=== PATIENT | female | born 1975 | race Caucasian/White ===

== ENCOUNTER 2017-09-13 18:52 | Inpatient (IN) | payer OTHER ==
[~2017-09-13] VITALS: Ht 162.6 cm; Wt 83.3 kg
[2017-09-13 19:09] LABS: EOSINOPHIL (%) 0.1 % (0-5); HEMATOCRIT 42.7 % (36.0-46.0); IMMATURE GRANULOCYTE COUNT 0.2 K/uL; LYMPHOCYTE COUNT 1.9 K/uL (1.0-2.8); MCH 29.4 PG (29.0-34.0); MCV 86.6 FL (83-99); MEAN PLAT.VOLUME 9.3 uM^3 (9.5-12.4); MONOCYTE (%) 4.3 % (3-12); MONOCYTE COUNT 0.6 K/uL (0-0.8); NEUTROPHIL (%) 81.2 % (45-76); PLATELET COUNT 332 K/uL (156-360); RBC DIS.WIDTH-CV 11.9 % (11.8-14.6); RBC DIS.WIDTH-SD 37.8 % (39-53); RED BLOOD COUNT 4.93 M/uL (3.80-5.20); WHITE BLOOD COUNT 14.7 K/uL (4.1-10.2)
[2017-09-13 19:19] LABS: AMYLASE 58 IU/L (1-118); CHLORIDE 110 mEq/L (99-109); POTASSIUM 4.2 mEq/L (3.7-5.4); SODIUM 144 mEq/L (136-147)
[2017-09-13 19:21] LABS: GLUCOSE 105 mg/dL (70-99)
[2017-09-13 19:22] LABS: ANION GAP 13 MEQ/L (2-14)
[2017-09-13 19:24] LABS: SERUM ETHYL ALCOHOL < 10 mg/dL
[2017-09-13 19:26] LABS: UREA NITROGEN (BUN) 12 mg/dL (9-23)
[2017-09-13 19:28] LABS: GFR ESTIMATE (CALCULATED) > 59 mL/min/; LIPASE 12 U/L (1.0-51.0)
[2017-09-13 19:34] LABS: QUANTITATIVE HCG < 4.0 MIU/ML
[2017-09-13 22:09] VITALS: BP 125/78
[2017-09-14 04:13] VITALS: BP 121/72
[2017-09-14 06:43] LABS: HEMATOCRIT 36.9 % (36.0-46.0); MCH 30.5 PG (29.0-34.0); MCHC 34.4 G/DL (30.0-36.0); MCV 88.5 FL (83-99); MEAN PLAT.VOLUME 9.3 uM^3 (9.5-12.4); PLATELET COUNT 296 K/uL (156-360); RBC DIS.WIDTH-CV 12.3 % (11.8-14.6); RBC DIS.WIDTH-SD 40.2 % (39-53); RED BLOOD COUNT 4.17 M/uL (3.80-5.20); WHITE BLOOD COUNT 18.4 K/uL (4.1-10.2)
[2017-09-14 07:09] LABS: ANION GAP 11 MEQ/L (2-14); CHLORIDE 107 MEQ/L (99-109); GFR ESTIMATE (CALCULATED) > 59 mL/min/; GLUCOSE 105 mg/dL (70-99); POTASSIUM 4.2 MEQ/L (3.7-5.4); SAMPLE HEMOLYSIS CHECK 0; SAMPLE ICTERIC CHECK 0; SAMPLE LIPEMIA CHECK 0; SODIUM 141 MEQ/L (136-147); UREA NITROGEN (BUN) 10 mg/dL (9-23)
[2017-09-14 07:33] VITALS: BP 132/78
[2017-09-14 11:23] LABS: ADD MIUA? YES; BILIRUBIN NEGATIVE; BLOOD MODERATE; COLOR YELLOW ((YELLOW)); GLUCOSE (STRIP) NEGATIVE; KETONES NEGATIVE; LEUKOCYTES TRACE; NITRITE NEGATIVE; PROTEIN (STRIP) NEGATIVE; SPECIFIC GRAVITY 1.016 (1.000-1.030); UROBILINOGEN 0.2 MG/DL (0.2-1.0)
[2017-09-14 11:27] VITALS: BP 123/83
[2017-09-14 11:37] LABS: BACTERIA RARE /HPF; EPITHELIAL CELLS RARE /HPF; HYALINE CASTS 0-5 /LPF; MUCUS TRACE /LPF; UCUL ADDED? NO; WHITE BLOOD CELLS 0-5 /HPF (0-5)
[2017-09-14 13:26] LABS: AMPHETAMINES QUANT VALUE 0 NG/ML; BARBITUATES QUANT VALUE 0 NG/ML; BENZODIAZEPINES QUANT VALUE 0 NG/ML; BENZODIAZEPINES, URINE SCREEN Negative (200 ng/mL); MARIJUANA QUANT VALUE 0 NG/ML; PHENCYCLIDINE QUANT VALUE 0 NG/ML
[2017-09-14 16:49] VITALS: BP 137/85
[2017-09-14 19:51] VITALS: BP 139/90
[2017-09-14 23:32] VITALS: BP 126/79
[2017-09-15 04:41] VITALS: BP 122/74
[2017-09-15 08:00] VITALS: BP 122/78
[2017-09-15 11:53] VITALS: BP 120/82
[2017-09-15 15:52] VITALS: BP 131/76
[2017-09-15 19:47] VITALS: BP 130/85
[2017-09-15 23:27] VITALS: BP 131/80
[2017-09-16 03:37] VITALS: BP 121/78
[2017-09-16 08:04] VITALS: BP 131/86
[2017-09-16 11:47] VITALS: BP 128/81
[2017-09-16 20:13] VITALS: BP 136/89
[2017-09-17 00:07] VITALS: BP 120/75
[2017-09-17 04:24] VITALS: BP 120/74
[2017-09-17 08:17] VITALS: BP 120/78
[2017-09-17 11:53] VITALS: BP 129/81
[2017-09-17 16:16] VITALS: BP 133/79
[2017-09-17 19:40] VITALS: BP 124/82
[2017-09-18 03:41] VITALS: BP 125/77
[2017-09-18 06:37] LABS: HEMATOCRIT 37.9 % (36.0-46.0); MCH 29.2 PG (29.0-34.0); MCHC 33.2 G/DL (30.0-36.0); MCV 87.7 FL (83-99); MEAN PLAT.VOLUME 9.1 uM^3 (9.5-12.4); PLATELET COUNT 323 K/uL (156-360); RBC DIS.WIDTH-CV 11.9 % (11.8-14.6); RED BLOOD COUNT 4.32 M/uL (3.80-5.20); WHITE BLOOD COUNT 11.4 K/uL (4.1-10.2)
[2017-09-18 07:05] VITALS: BP 120/78
[2017-09-18] MEDS ORDERED: NORCO 5/3251 TABLET PO (11:06)
[2017-09-18] MEDS ORDERED: FLEXERIL10 MG PO (11:06)
[2017-09-18 11:59] VITALS: BP 129/79
== END 2017-09-18 16:24 | disposition home or self-care (01) | DRG 200 ==
LOC: EME 18:52 → EDBD 18:52 → TRA 18:52 → EDOF 20:37 → 3EAST 20:37 → ENRESERV 20:42 → 3EAST 22:00
PROVIDERS: Emergency Medicine; Surgery
PROC: 0W9930Z Drainage of Right Pleural Cavity with Drainage Device, Percutaneous Approach (ICD-10-PCS; principal; 2017-09-13)
PROC: 0W9930Z Drainage of Right Pleural Cavity with Drainage Device, Percutaneous Approach (ICD-10-PCS; 2017-09-16)
DX: S27.0XXA Traumatic pneumothorax, initial encounter (principal); S22.41XA Multiple fractures of ribs, right side, initial encounter for closed fracture; V80.010A Animal-rider injured by fall from or being thrown from horse in noncollision accident, initial encounter; Y93.52 Activity, horseback riding
CPT/HCPCS: 32557; 70450; 71010; 71020; 71260; 72125; 72129; 72132; 74177; 80048; 80306 90; 81003; 82150; 83690; 84702; 85025; 85027; 86850; 86900; 86901; 94799; 99281; 99285; C1729; C1769; C9113; G0480; J1650; J2270; J2405; J3010; J7120